=== PATIENT | female | born 1985 | race Caucasian/White ===

== ENCOUNTER 2019-08-17 17:51 | Emergency (ER) | payer MEDICAID, SELFPAY ==
[2019-08-17 18:02] VITALS: BP 127/97; PULSE 111; RESP 17; TEMP 36.8; O2SAT 98; BMI 20.5
[2019-08-17 19:09] VITALS: BP 112/80; PULSE 80; RESP 18; O2SAT 97
[2019-08-17 19:11] VITALS: BP 112/80; PULSE 87; RESP 18; O2SAT 97
--- NOTE | 2019-08-17 20:26 | ED_ITS ---
HPI - General Adult General: Chief complaint: General Medical Stated complaint: swollen gland in neck Time Seen by Provider: 08/17/19 18:46 Source: patient Mode of arrival: ambulatory Limitations: no limitations History of Present Illness: HPI narrative: Patient is a 34-year-old female who presents to ED today with complaints of a lump to the left side of her neck that she has noticed over the past few days that feels sore to touch. Patient states she has been sick with URI symptoms of a cough, sinus pain/pressure, runny nose. No fevers/chills. Onset (ago): day(s) Location: neck Pain Consistency: constant Relieving factors: none Associated symptoms: Deny chest pain, dyspnea, headache(s), malaise, nausea, rash, palpitations, syncope or vomiting Review of Systems Const: Denies: fever, chills, body aches, change in appetite, change in weight, fatigue or malaise Eyes: Denies: change in vision or blurry vision ENMT: Reports: painful swallowing, nasal congestion, post nasal drip and facial/sinus pain; Denies: throat pain or enlarged tonsils Card: Denies: chest pain, palpitations, irregular heart rhythm, edema, swelling of feet/ankles, lightheadedness, syncope, pre-syncope, shortness of breath when lying down or leg pain with exertion Resp: Reports: non-productive cough and chest congestion; Denies: shortness of breath, pain on inspiration or coughing up blood GI: Denies: abdominal pain, nausea or vomiting Musc: Reports: neck pain; Denies: back pain, extremity pain, extremity swelling, joint pain or joint swelling Skin/Breast: Denies: rash, new lesion or changes in skin color Neuro: Denies: headache, numbness in extremities, weakness in extremities or changes in sensation PFSH ED PFSH: Social History Smoking and tobacco status: current every day smoker Female Reproductive History: Date of last menstrual period: 08/03/19 Physical Exam Const: COMMON NORMALS: no apparent distress, average body habitus, oriented x3, no limitations, healthy appearing, alert and well nourished HENMT: COMMON NORMALS: normocephalic, head/scalp atraumatic, hearing grossly normal bilaterally, external ears normal, EAC's normal, TM's normal bilaterally, external nose normal, moist oral mucous membranes and oropharynx normal HEAD & SCALP: normocephalic and atraumatic FACE & SINUS: sinus tenderness (mild) maxillary NOSE: external nose normal EXTERNAL EAR: Yes external ears normal EXTERNAL AUDITORY CANAL: EAC's normal TYMPANIC MEMBRANE: TM's normal bilaterally MOUTH: oral and palatal mucosa normal, lip normal, tongue normal and other (post nasal drainage ) THROAT: posterior oropharynx normal, tonsils normal and uvula midline Eye: COMMON NORMALS: PERRL, EOMs intact bilaterally, conjunctivae normal and no scleral icterus CONJUNCTIVA: Yes conjunctivae normal PUPIL: Yes PERRL Neck/C-Spine: COMMON NORMALS: full ROM and no meningeal signs OTHER: pt has a tender swollen posterior cervical lymph node Resp: COMMON NORMALS: normal respiratory effort and clear to auscultation bilaterally AUSCULTATION: clear to auscultation bilaterally Cardio: COMMON NORMALS: regular rate and regular rhythm RATE: regular rate RHYTHM: regular rhythm Extremity: COMMON NORMALS: normal to inspection Neuro: COMMON NORMALS: oriented x3 SENSORIUM/ORIENTATION: Yes alert MENINGEAL SIGNS: Yes no meningeal signs Skin: COMMON NORMALS: no rashes or lesions noted GENERAL SKIN EXAM: no rashes or lesions noted Course Vital Signs: Vital signs: Vital Signs Temperature 98.3 F 08/17/19 18:02 Pulse Rate 87 08/17/19 19:11 Respiratory Rate 18 08/17/19 19:11 Blood Pressure 112/80 08/17/19 19:11 Pulse Oximetry 97 08/17/19 19:11 MDM - General Adult MDM Narrative: Medical decision making narrative: will treat with abx and have pt follow up with her PCP in 2 weeks for continued enlargement and pain Discharge Plan Discharge Patient Disposition: Home, Self-Care Clinical Impression: Lymphadenopathy Condition: Stable Prescriptions: New Bactrim DS 800-160 mg tablet 1 tab PO BID 7 Days Qty: 14 RF: 0 Discharge Orders: Discharge Order (Routine); Ordered 08/17/19 Ordered By: Yana Bruce Referrals: Jocy Pete MD [Primary Care Provider] - Discharge Diet: Usual diet Discharge Activity: Increase activity as tolerated Activity Restrictions/Additional Instructions: As discussed you need to followup with Dr. Pete in 2 weeks if lymph node is still enlarged and tender. Discharge Date/Time: 08/17/19 19:12 Coding Level of Care Code ED Supervisor Home Economics for Justin Ayers
== END 2019-08-17 19:12 | disposition home or self-care (01) ==
PROVIDERS: Emergency Provider Physician Assistant; Family Provider Family Medicine; PCP Family Medicine
DX: R59.0 Localized enlarged lymph nodes (principal); F17.200 Nicotine dependence, unspecified, uncomplicated
CPT/HCPCS: 99281; 99282

== ENCOUNTER 2021-03-14 00:14 | Emergency (ER) | payer MEDICAID, SELFPAY ==
[2021-03-14 00:20] VITALS: BP 168/90; PULSE 106; RESP 22; TEMP 36.7; O2SAT 99; BMI 20.5
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
[2021-03-14 02:03] VITALS: BP 119/78; PULSE 81; RESP 20; O2SAT 99
== END 2021-03-14 02:00 | disposition home or self-care (01) ==
PROVIDERS: Emergency Provider Nurse Practitioner Family; PCP Family Medicine
DX: F41.9 Anxiety disorder, unspecified (principal); F17.210 Nicotine dependence, cigarettes, uncomplicated
CPT/HCPCS: 99282

== ENCOUNTER 2021-07-31 02:41 | Emergency (ER) | payer MEDICAID, SELFPAY ==
[2021-07-31 02:48] VITALS: BP 136/94; PULSE 128; RESP 18; TEMP 37.2; O2SAT 99; BMI 19.3
--- NOTE | 2021-07-31 03:04 | ECG_ITS ---
[facility] Test Date: 2021-07-31 Pat Name: Denise Ovalle Department: Room: Gender: Female Cat Tender: : 1985 Requested By: Willie Mena Order Number: [id number] Jimena MD: Marni Willis M.D. Measurements Intervals [place] Rate: 135 P: 74 LA: 143 QRS: 87 QRSD: 93 T: 23 QT: 331 QTc: 497 Interpretive Statements SINUS TACHYCARDIA POSSIBLE RIGHT VENTRICULAR CONDUCTION DELAY [RSR (QR) IN V1/V2] NONSPECIFIC ST & T-WAVE ABNORMALITY No previous ECG available for comparison Electronically Signed On 07-31-2021 8:41:17 SENIOR IT ENGINEER by Marni Willis M.D. [id number]
--- NOTE | 2021-07-31 03:12 | XRR_ITS ---
PROCEDURE INFORMATION: Exam: XR Chest Exam date and time: 07/31/2021 3:12 AM Age: 36 years old Clinical indication: Pain; On breathing; Additional info: Congestion, cp TECHNIQUE: Imaging protocol: XR of the chest. Views: 1 view. COMPARISON: CR XR abdomen min 2V [id number] 01/14/2020 5:25 PM FINDINGS: Lungs: No focal airspace disease. Pleural spaces: Unremarkable. No pleural effusion. No pneumothorax. Heart/Mediastinum: Cardiomediastinal silhouette is within normal limits. Bones/joints: Dextrocurvature of the thoracic spine. XR/XR chest 1V portable [id number] IMPRESSION: No acute cardiopulmonary abnormality.
[2021-07-31] MEDS: LORazepam 2 mg/mL INJ 1 mL 1.5 MG IM (03:35)
--- NOTE | 2021-07-31 03:46 | W.ED.ANXIETY ---
HPI - Anxiety General: Chief Complaint: Anxiety Stated Complaint: Panic Attacks\Sore Throat\Chest Pain ETC Time Seen by Provider: 07/31/21 02:58 Source: patient History of Present Illness: 36-year-old female with a history of anxiety disorder. She is prescribed BuSpar but does not like to take it due to side effects. She presents with 3 days of increased anxiety. She notes her chest does hurt at times. She has had some panic attacks. She also describes a congested feeling in her throat. Minimal cough. No fever. She has had diarrhea but no vomiting. No sick contacts. MD complaint: anxiety and heart racing Symptoms: chest pain and palpitations Severity: moderate Quality: intermittent Place: home History of similar episodes: Yes Provoking factors: emotional stress and other Relieving factors: nothing Exacerbating factors: nothing Associated symptoms: Reports chest pain, nausea, palpitations and other; Deny chills, confusion, fever(s), headache(s), short of breath, syncope or vomiting Review of Systems Const: Denies: fever(s) or chills Card: Reports: chest pain and palpitations; Denies: syncope GI: Reports: nausea and diarrhea; Denies: vomiting : Denies: difficulty voiding Neuro: Denies: headache(s) or confusion Psych: Reports: anxiety; Denies: suicidal ideation or homicidal ideation [facility] ED PFSH: Social History Smoking and tobacco status: current every day smoker Female Reproductive History: Date of last menstrual period: 08/03/19 Physical Exam Const: GENERAL APPEARANCE: cooperative, well kempt and anxious; not ill appearing HENMT: COMMON NORMALS: normocephalic, atraumatic and Normal external nose present HEAD & SCALP: normocephalic and atraumatic FACE & SINUS: normal facial exam NOSE: Normal external nose present and Normal nares present MOUTH: Normal oral and palatal mucosa present THROAT: posterior oropharynx normal Eye: COMMON NORMALS: Equal, round and reactive pupils present and EOMs intact bilaterally PUPIL: Yes Equal, round and reactive pupils present Resp: COMMON NORMALS: normal respiratory effort, No use of accessory muscles and clear to auscultation bilaterally AUSCULTATION: clear to auscultation bilaterally Cardio: COMMON NORMALS: regular rhythm RATE: tachycardic RHYTHM: regular rhythm GI: COMMON NORMALS: Normal to inspection, nondistended, normoactive bowel sounds present and Soft to palpation PALPATION: Yes Soft to palpation Extremity: COMMON NORMALS: normal to inspection Neuro: YENNIFER COMA SCALE: document GCS findings Yennifer coma scale eye opening: Spontaneous Shubuta coma scale verbal response: Orientated Yennifer coma scale motor response: Obey commands Shubuta coma scale total score: 15 Psych: COMMON NORMALS: cooperative, speech normal and denies suicidal ideation APPEARANCE: Yes well kempt ATTITUDE: Yes Other attitude/behavior findings present (Psych) (Anxious) ACTIVITY/MOTOR BEHAVIOR: Yes appropriate eye contact SPEECH: Yes normal speech Course Vital Signs: Vital signs: Vital Signs Temperature 98.9 F 07/31/21 02:48 Pulse Rate 128 H 07/31/21 02:48 Respiratory Rate 18 07/31/21 02:48 Blood Pressure 136/94 07/31/21 02:48 Pulse Oximetry 99 07/31/21 02:48 MDM - Anxiety Medical Decision Making Symptoms greatly improved after Ativan injection. She refused a Covid swab. Heart rate down to 100 from 130. Chest x-ray is normal. Lab Data Radiology Impressions Chest X-Ray 07/31/21 03:12 IMPRESSION: No acute cardiopulmonary abnormality. Discharge Plan Discharge Patient Disposition: Home Clinical Impression: Acute anxiety Condition: Stable Discharge Orders: Discharge ED (Routine); Ordered 07/31/21 Ordered By: Willie Watson Referrals: Jocy Pete MD [Primary Care Provider] - 1-3 days Discharge Diet: Advance as tolerated Discharge Activity: Limit activity as instructed Patient Instructions: Anxiety (ED) Activity Restrictions/Additional Instructions: Medications as prescribed. Follow-up with your doctor this coming week. Return for worsening chest pain, shortness of breath, fever greater than 100, other concerning symptoms. You should consider quarantining at home as long as you were symptomatic with throat pain, chest congestion, etc. Coding Level of Care Code ED Maintenance Truck Driver for Justin Fwd Exam Comprehensive
[2021-07-31] MEDS: LORazepam 1 mg Tablet PO (05:11)
== END 2021-07-31 05:26 | disposition home or self-care (01) ==
PROVIDERS: Emergency Provider Emergency Medicine; PCP Family Medicine
DX: F41.9 Anxiety disorder, unspecified (principal); F17.210 Nicotine dependence, cigarettes, uncomplicated
CPT/HCPCS: 71045; 93005; 96372; 99283; J2060

== ENCOUNTER 2021-08-07 07:46 | Outpatient (CLI) | payer MEDICAID, SELFPAY ==
--- NOTE | 2021-08-07 08:11 | MM_ITS ---
WS: [id number] LEFT DIGITAL MAMMOGRAPHY WITH CAD CLINICAL INFORMATION: LT BREAST LUMPS HISTORY: LEFT breast lumps COMPARISON: April 02, 2007 ultrasound TECHNIQUE: 5 views of the left breast were obtained. FINDINGS: The left breast is composed of heterogeneous fibroglandular density tissue, which can limit the detec tion of small underlying mass lesions. Palpable marker over the inferior LEFT breast. No definite und erlying mammographic abnormalities. Ultrasound is pending. A few incidental punctate calcifications. ULTRASOUND BREAST LEFT TECHNIQUE: Ultrasound left breast focused area of concern. CLINICAL INFORMATION: LT BREAST LUMPS FINDINGS: Ultrasound LEFT breast at the 6:00 position 3 cm from the nipple. No suspicious underlying abnormalit ies. No cystic or solid lesions. Normal underlying breast tissue. MM/[place] [id number] IMPRESSION: BI-RADS: 2-Benign FOLLOW UP: Age 42 Recommend annual screening mammography age 40
== END 2021-08-07 07:47 | disposition home or self-care (01) ==
PROVIDERS: PCP Family Medicine; Visit Provider Family Medicine
DX: N63.25 Unspecified lump in the left breast, overlapping quadrants (principal)
CPT/HCPCS: 76642; 77065

== ENCOUNTER → 2022-02-27 15:19 | Outpatient (BNVA) | payer MEDICAID, SELFPAY | PROVIDERS: PCP Family Medicine; Visit Provider Family Medicine | DX: Z00.00 Encounter for general adult medical examination without abnormal findings (principal) | CPT/HCPCS: 87624 ==

== ENCOUNTER → 2022-09-18 15:41 | Outpatient (BNVA) | payer MEDICAID, SELFPAY | PROVIDERS: PCP Family Medicine; Visit Provider Family Medicine | DX: Z01.84 Encounter for antibody response examination (principal); Z11.3 Encounter for screening for infections with a predominantly sexual mode of transmission | CPT/HCPCS: 86592; 86705; 86706; 86762; 86787; 86803; 87340; 87491; 87591; 87806 ==

== ENCOUNTER 2023-02-25 08:16 | Emergency (ER) | payer MEDICAID, SELFPAY ==
[2023-02-25 08:47] VITALS: BP 126/90; PULSE 97; RESP 18; TEMP 36.7; O2SAT 98
--- NOTE | 2023-02-25 08:58 | XRR_ITS ---
PROCEDURE INFORMATION: Exam: XR Left Hand Exam date and time: 02/25/2023 9:08 AM Age: 37 years old Clinical indication: Injury or trauma; Other: Hyperextended lt thumb; Blunt trauma (contusions or hematomas); Finger; Left; Additional info: Injury/pain TECHNIQUE: Imaging protocol: Radiologic exam of the left hand. Views: 3 or more views. COMPARISON: No relevant prior studies available. FINDINGS: Bones/joints: There is a comminuted fracture of the base of the 1st metacarpal. Soft tissues: There is soft tissue swelling. XR/XR hand LT min 3V* [id number] IMPRESSION: Fracture of the left 1st metacarpal.
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
[2023-02-25 09:26] VITALS: BP 135/101; PULSE 117; RESP 18; O2SAT 100
--- NOTE | 2023-02-25 09:45 | DCPLANNER ---
Addendum entered by Lillian Richardson 02/27/23 11:15: Patient has a follow up appointment scheduled for Wednesday, March 01, 2023 at 10:30 with Rajesh Matthews at ortho. Original Note: manager cosmetics had message to schedule a follow up appointment for patient with ortho. manager cosmetics sent patients information to the front office staff at ortho. Patients information will be printed and reviewed. Clinic will call patient with appointment information.
== END 2023-02-25 09:56 | disposition home or self-care (01) ==
PROVIDERS: Emergency Provider Physician Assistant; PCP Family Medicine
DX: S62.235A Other nondisplaced fracture of base of first metacarpal bone, left hand, initial encounter for closed fracture (principal); F17.210 Nicotine dependence, cigarettes, uncomplicated; X50.9XXA Other and unspecified overexertion or strenuous movements or postures, initial encounter
CPT/HCPCS: 73130; 99283

== ENCOUNTER 2023-03-01 06:00 | Outpatient (CLI) | payer MEDICAID, SELFPAY | END 2023-03-01 06:01 | disposition home or self-care (01) | LOC: SOT 03-04 09:05 | PROVIDERS: PCP Family Medicine; Visit Provider Physician Assistant | DX: Z46.89 Encounter for fitting and adjustment of other specified devices (principal); T14.8XXA Other injury of unspecified body region, initial encounter | CPT/HCPCS: 97760; L3807 ==

== ENCOUNTER → 2023-03-01 10:18 | Outpatient (BNVA) | payer MEDICAID, SELFPAY | PROVIDERS: PCP Family Medicine; Referring Provider Physician Assistant; Visit Provider Physician Assistant | DX: S62.235A Other nondisplaced fracture of base of first metacarpal bone, left hand, initial encounter for closed fracture; X50.9XXA Other and unspecified overexertion or strenuous movements or postures, initial encounter | CPT/HCPCS: 73130 ==

== ENCOUNTER → 2023-03-08 09:07 | Outpatient (BNVA) | payer MEDICAID, SELFPAY | PROVIDERS: PCP Family Medicine; Visit Provider Physician Assistant | DX: S62.235A Other nondisplaced fracture of base of first metacarpal bone, left hand, initial encounter for closed fracture; X50.9XXA Other and unspecified overexertion or strenuous movements or postures, initial encounter | CPT/HCPCS: 73130 ==

== ENCOUNTER → 2023-03-14 12:55 | Outpatient (BNVA) | payer MEDICAID, SELFPAY | PROVIDERS: PCP Family Medicine; Visit Provider Physician Assistant | DX: S62.235A Other nondisplaced fracture of base of first metacarpal bone, left hand, initial encounter for closed fracture; X58.XXXA Exposure to other specified factors, initial encounter | CPT/HCPCS: 73130 ==

== ENCOUNTER → 2023-03-28 14:34 | Outpatient (BNVA) | payer MEDICAID, SELFPAY | PROVIDERS: PCP Family Medicine; Visit Provider Physician Assistant | DX: S62.235D Other nondisplaced fracture of base of first metacarpal bone, left hand, subsequent encounter for fracture with routine healing; X58.XXXD Exposure to other specified factors, subsequent encounter | CPT/HCPCS: 73130 ==

== ENCOUNTER 2023-04-11 14:41 | Outpatient (CLI) | payer MEDICAID, SELFPAY ==
--- NOTE | 2023-04-11 14:46 | XR_ITS ---
WS: [id number] Left hand, 3 views, 04/11/2023 Clinical Data: fracture Comparison: Left hand, 03/28/2023 Findings: The fracture of the base of the left first metacarpal shows healing. The fracture line is still visib le but there is sclerosis. The remainder of the hand shows no change. Impression: Healing fracture base of the left first metacarpal.
== END 2023-04-11 14:42 | disposition home or self-care (01) ==
LOC: RAD 14:43
PROVIDERS: PCP Family Medicine; Visit Provider Student in an Organized Health Care Education/Training Program
DX: S62.209 Unspecified fracture of first metacarpal bone, unspecified hand (principal); X58.XXXD Exposure to other specified factors, subsequent encounter
CPT/HCPCS: 73130

== ENCOUNTER → 2023-05-28 13:07 | Outpatient (BNVA) | payer MEDICAID, SELFPAY | PROVIDERS: PCP Family Medicine; Visit Provider Physician Assistant | DX: S62.235A Other nondisplaced fracture of base of first metacarpal bone, left hand, initial encounter for closed fracture; X58.XXXA Exposure to other specified factors, initial encounter | CPT/HCPCS: 73130 ==

== ENCOUNTER → 2024-02-20 13:49 | Outpatient (BNVA) | payer MEDICAID, SELFPAY | PROVIDERS: PCP Family Medicine; Visit Provider Family Medicine | DX: Z20.2 Contact with and (suspected) exposure to infections with a predominantly sexual mode of transmission (principal) | CPT/HCPCS: 87491; 87591 ==

== ENCOUNTER 2024-10-05 10:02 | Outpatient (CLI) | payer OTHER, SELFPAY ==
--- NOTE | 2024-10-05 10:08 | XR_ITS ---
WS: [id number] LUMBAR SPINE TECHNIQUE: 3 views of the lumbar spine CLINICAL INFORMATION: DIFFICULTY WALKING; DIFFICULTY STANDING FINDINGS: Five [id number] lumbar vertebral bodies. Mild lumbar curve convex LEFT. Disc space heights are well preserved. No compression fractures. No visualized pars defects. No spondylolisthesis. Visualized sacroiliac joints are normal. Normal visualized soft tissues. Partially visualized bowel gas pattern is normal. XR/XR lumbar spine 2-3V* [id number] IMPRESSION: No acute lumbar spine findings
== END 2024-10-05 10:03 | disposition home or self-care (01) ==
LOC: RAD 10:06
PROVIDERS: PCP Family Medicine
DX: Z02.71 Encounter for disability determination (principal); M43.8X6 Other specified deforming dorsopathies, lumbar region
CPT/HCPCS: 72100

== ENCOUNTER → 2025-05-27 15:47 | Outpatient (BNVA) | payer MEDICAID, SELFPAY | PROVIDERS: PCP Family Medicine; Visit Provider Obstetrics & Gynecology | DX: R61 Generalized hyperhidrosis (principal); R23.2 Flushing; R19.00 Intra-abdominal and pelvic swelling, mass and lump, unspecified site; X58.XXXA Exposure to other specified factors, initial encounter; T07.XXXA Unspecified multiple injuries, initial encounter; R21 Rash and other nonspecific skin eruption | CPT/HCPCS: 80053; 80307; 84443; 85025; 86592; 86618; 86666; 86757 ==

== ENCOUNTER 2025-06-16 09:03 | Outpatient (CLI) | payer MEDICAID, SELFPAY ==
[2025-06-16] MEDS: iohexol 350 mg/mL 500 mL Btl (per mL) IV (09:59)
[2025-06-16] MEDS: iohexol 350 mg/mL 500 mL Btl (per mL) PO (09:59)
--- NOTE | 2025-06-16 10:00 | CT_ITS ---
WS: [id number] CT ABDOMEN AND PELVIS WITH AND WITHOUT CONTRAST HISTORY: R21 - Rash and other nonspecific skin eruption, abdominal swelling for 11 years. Chronic diarrhea. TECHNIQUE: Unenhanced 5 mm axial imaging first performed through the abdomen and pelvis. Post contrast imaging through the abdomen and pelvis. Oral contrast has been provided. Sagittal and coronal reformats are submitted. All CT scans at [facility] use at least one of these dose optimization techniques: automated exposure control; mA and/or kV adjustment per patient size (includes targeted exams where dose is matched to clinical indication); or iterative reconstruction. CONTRAST: Omnipaque 350; 95 mL IV. DLP: 671.29 mGy.cm COMPARISON: 04/12/2011 Lung bases are clear. Heart is normal size. No hiatal hernia. Liver, spleen, gallbladder, pancreas, adrenal glands, kidneys and aorta are normal. No renal obstruction or masses. No GI tract obstruction. No colitis. The appendix is identified and normal. Small amount of free fluid in the pelvis is physiologic in amount. No adenopathy. Uterus is normal size and midline. Both ovaries are identified and contain peripherally enhancing small cysts which are probably corpus luteal cyst. The urinary bladder is normal. No destructive bone lesions. CT/CT abdomen pelvis wo/w [id number] IMPRESSION: 1. Small amount of free fluid in the pelvis is physiologic in amount. 2. Normal appendix. 3. No acute abdominal or pelvic abnormalities are identified by CT.
== END 2025-06-16 09:04 | disposition home or self-care (01) ==
LOC: RAD 09:04
PROVIDERS: PCP Family Medicine; Visit Provider Obstetrics & Gynecology
DX: R10.9 Unspecified abdominal pain (principal); R19.07 Generalized intra-abdominal and pelvic swelling, mass and lump; R93.89 Abnormal findings on diagnostic imaging of other specified body structures
CPT/HCPCS: 74178